=== PATIENT | female | born 1990 | race Caucasian/White ===

== ENCOUNTER 2020-07-02 16:58 | Outpatient (REF) | payer MEDICAID, SELFPAY ==
--- NOTE | 2020-07-02 16:45 | PAPFT_PTH ---
PATIENT: Leandra Collier LOC: [facility]#:[id number] AGE/SX: 29/F ROOM: RE07/02/[address]: Swetha Haney : 1990 BED: DIS: 07/02/2020 SPEC #: [id number] RECD: 07/03/20 13:12 STATUS: MRATY RELiv #: [id number] SURYA: 07/02/20 16:[address]: Swetha Haney DEPT: [facility] Cytology RECD BY: Pina Gutierrez ENTERED: 07/03/20 13:12 SP TYPE: PAPFT OTHR DR: Carlene Mendoza Tissues: 1 - CX/ENDOCX FOR PAP SMEARS Procedures: PAP THIN PREP/UVM Screening Comments: [id number] (CHLAMYDIA/GC)
[2020-07-04 14:21] LABS: Chlamydia Result Negative (Negative); GC Result Negative (Negative)
== END 2020-07-02 16:59 | disposition home or self-care (01) ==
LOC: NCHCN 16:58
PROVIDERS: PCP Nurse Practitioner Family; Visit Provider Physician Assistant
DX: Z11.3 Encounter for screening for infections with a predominantly sexual mode of transmission (principal); Z12.4 Encounter for screening for malignant neoplasm of cervix; R87.611 Atypical squamous cells cannot exclude high grade squamous intraepithelial lesion on cytologic smear of cervix (ASC-H)
CPT/HCPCS: 87491; 87591; 88142

== ENCOUNTER 2020-07-08 01:58 | Outpatient (CLI) | payer MEDICAID, SELFPAY ==
--- NOTE | 2020-07-08 | DI.US_ITS ---
EXAM: US PELVIS TRANSVAGINAL pelvic ultrasound CLINICAL HISTORY: [facility] CERVIX FINDINGS,N88.8,[facility] PAP SMEAR,R87.89,CERVICAL MASS TECHNIQUE: Ultrasound of the pelvis was performed both transabdominal and transvaginal. COMPARISON: No exams were available for comparison FINDINGS: UTERUS: Measures 8.6 cm length x 3.8 cm AP x 5.3 cm wide. There are no uterine fibroids. Endometrial thickness measures 11.4 mm. It appears mildly heterogeneous There is no fluid in the endometrial canal. CERVIX: There are multiple nabothian cysts in the upper cervix noted. The cervix appears somewhat he terogeneous but there is no the discernible mass other than the nabothian cysts. RIGHT OVARY: Measures 2.8 x 2.2 x 2.5 cm There is a cyst in the right ovary measuring 2.5 x 2.2 cm. LEFT OVARY: Measures 2.2 x 1.2 x 0.8 cm Small follicles noted. No solid masses. Normal vascular flow is demonstrated in both ovaries. CUL-DE-SAC: No free fluid evident. IMPRESSION: 1. Slightly thickened and heterogeneous endometrium. No other focal uterine findings. Nabothian cys t noted in the upper cervix. 2. 2.5 x 2.2 centimeters cyst in the right ovary noted. 3. No free fluid evident in the adnexal regions and cul-de-sac. DATA REPOSITORY:
== END 2020-07-08 01:59 ==
PROVIDERS: PCP Physician Assistant; Visit Provider Physician Assistant
DX: N88.8 Other specified noninflammatory disorders of cervix uteri (principal); R87.89 Other abnormal findings in specimens from female genital organs; R93.89 Abnormal findings on diagnostic imaging of other specified body structures; N83.291 Other ovarian cyst, right side
CPT/HCPCS: 76830; 76856

== ENCOUNTER 2020-07-09 09:50 | Outpatient (REF) | payer MEDICAID, SELFPAY ==
[2020-07-09 15:39] LABS: ALT 13 U/L (14-59); AST 10 U/L (15-37); Albumin 3.6 g/dL (3.4-5.0); Alkaline Phosphatase 53 U/L (46-116); Anion Gap 12.9 mmol/L (3-11); BUN 7 mg/dL (7-18); Bilirubin, Total 0.2 mg/dL (0.2-1.0); CO2 25.1 mmol/L (21.0-32.0); CREATININE 0.7 mg/dL (0.55-1.02); Calcium 8.7 mg/dL (8.5-10.1); Calculated LDL 108 mg/dL (<100); Chloride 102 mmol/L (98-107); Cholesterol 209 mg/dL (<200); Glucose 86 mg/dL (74-106); HDL Cholesterol 50 mg/dL (40-60); Potassium 3.6 mmol/L (3.5-5.1); Sodium 140 mmol/L (136-145); TSH (W/Ref FT4) 2.52 uIU/mL (0.36-3.74); Total Protein 7.2 g/dL (6.4-8.2); Triglyceride 255 mg/dL (<150)
== END 2020-07-09 09:51 | disposition home or self-care (01) ==
LOC: NCHCN 09:50
PROVIDERS: PCP Physician Assistant; Visit Provider Physician Assistant
DX: F41.8 Other specified anxiety disorders (principal); K59.09 Other constipation; Z13.220 Encounter for screening for lipoid disorders; Z00.00 Encounter for general adult medical examination without abnormal findings
CPT/HCPCS: 80053; 80061; 84443

== ENCOUNTER 2020-08-06 14:19 | Outpatient (REF) | payer MEDICAID, SELFPAY ==
--- NOTE | 2020-08-06 13:50 | ENDO_PTH ---
PATIENT: Leandra Collier LOC: [facility] U#:[id number] AGE/SX: 29/F ROOM: RE08/06/[address]: Calista Montesinos : 1990 BED: DIS: 08/06/2020 SPEC #: [id number] RECD: 08/06/20 17:13 STATUS: MARTY RELiv #: [id number] SURYA: 08/06/20 13:[address]: Calista Montesinos DEPT: Surgical Specimen RECD BY: Pina Gutierrez ENTERED: 08/06/20 17:14 SP TYPE: Endo OTHR DR: Swetha Haney Tissues: 1 - ENDOCERVICAL BX/CURRETTE 2 - CERVICAL BIOPSY 3 - CERVICAL BIOPSY Procedures: GROSS AND MICRO LEVEL 4 IMMUNOPEROXIDASE STAIN P16 IPEX Comments: [id number]
== END 2020-08-06 14:20 | disposition home or self-care (01) ==
LOC: LBN 14:19
PROVIDERS: PCP Physician Assistant; Visit Provider Obstetrics & Gynecology Gynecology
DX: D06.0 Carcinoma in situ of endocervix (principal); N87.1 Moderate cervical dysplasia
CPT/HCPCS: 88305; 88342; 88361

== ENCOUNTER 2020-09-16 02:34 | Outpatient (CLI) | payer MEDICAID, SELFPAY ==
[2020-09-16 10:11] LABS: HCT 40.4 % (36.0-46.0); HGB 13.5 g/dL (11.2-15.7); MCH 30.8 pg (27.0-33.0); MCHC 33.4 % (32.0-36.0); MPV 10.5 fL (8.0-11.0); Platelet Count 267 10^3/uL (130-400); RBC 4.39 10^6/uL (3.93-5.22); RDW-SD 40.9 fL
[2020-09-16 10:57] LABS: Anion Gap 10.3 mmol/L (3-11); BUN 7 mg/dL (7-18); CO2 27.7 mmol/L (21.0-32.0); CREATININE 0.8 mg/dL (0.55-1.02); Calcium 9.3 mg/dL (8.5-10.1); Chloride 107 mmol/L (98-107); Glucose 74 mg/dL (74-106); HCG Quant, Pregnancy < 1 mIU/mL (1-3); Potassium 3.9 mmol/L (3.5-5.1); Sodium 145 mmol/L (136-145)
== END 2020-09-16 02:35 | disposition home or self-care (01) ==
LOC: LBO 02:34
PROVIDERS: PCP Physician Assistant; Visit Provider Obstetrics & Gynecology Gynecology
DX: D06.0 Carcinoma in situ of endocervix (principal); Z20.822 Contact with and (suspected) exposure to COVID-19; Z01.818 Encounter for other preprocedural examination; Z01.812 Encounter for preprocedural laboratory examination
CPT/HCPCS: 36415; 80048; 85027; 86850; 86900; 86901; 87635; 84702

== ENCOUNTER 2020-09-18 09:48 | Day surgery (SDC) | payer MEDICAID, SELFPAY ==
[2020-09-18] VITALS (7 sets, daily range): BP systolic 79–119; BP diastolic 44–76; PULSE 63–82; RESP 14–18; TEMP 36.1–36.7; O2SAT 98–100; BMI 22.4
[2020-09-18] MEDS: Lactated Ringers 1,000 ML 125 ML IV (10:20)
--- NOTE | 2020-09-18 10:31 | W.ANESPRE ---
General Info Date of Service Date Performed: 09/18/20 Height: 5 ft 4.96 in Weight: 61.235 kg Body Mass Index (BMI): 22.4 Surgical Procedure: Operation Date: 09/18/20 11:25 Proposed Procedures Side Surgeon p Cold Knife Biopsy Calista Montesinos MD Meds Allergies and Home Medications Allergies Allergy/AdvReac Type Severity Reaction Status Date / Time No Known Drug Allergies Allergy Unverified 09/16/20 10:08 Home Medication Medication Instructions Recorded norgestimate-ethinyl estradiol 1 tab-cap PO DAILY tab-cap 02/08/17 [Ortho Tri-Cyclen 28 Tablet] Current Visit Medications: Current Medications Generic Name Dose Route Start Last Admin Trade Name Freq PRN Reason Stop Dose Admin Ringer's Solution 1,000 mls @ 125 mls/hr 09/18/20 06:00 09/18/20 10:20 IV 10/17/20 23:59 125 mls/hr INFUSION LZI Administration IV Miscellaneous Supplies 1 each 09/18/20 06:00 Iv Access IV 10/17/20 23:59 DIRECTED LIZ Sodium Chloride 0 ml 09/18/20 06:00 Normal Saline Flush 10 Ml Syr IV 10/17/20 23:59 PRN PRN Sodium Chloride 0 ml 09/18/20 06:00 Normal Saline 10 Ml Vial IJ 10/17/20 23:59 DIRECTED PRN Sterile Water 0 ml 09/18/20 06:00 Water,Injection,Sterile 10 Ml Vial IJ 10/17/20 23:59 DIRECTED PRN PFSH Active Problems Active Problems: Problem Status Onset Code Preoperative exam for gynecologic surgery Z01.818 H/O colposcopy with cervical biopsy Z98.890 Chronic constipation K59.09 Uses contraception Z78.9 Tobacco use Z72.0 Abnormal Papanicolaou smear of vagina with positive test for vaginal human papillomavirus (HPV) Medical History Medical History Abnormal Papanicolaou smear of vagina with positive test for vaginal human papillomavirus (HPV) 2016. ASCUS +HPV. Colpo: No dysplasia 2020. ASCUS-H. Colpo: Biopsies Chronic constipation He uses MiraLA[employer] Tobacco use Started as a teenager. In the precontemplative stage of change Uses contraception 2020 OCPs Surgical History Surgical History H/O colposcopy with cervical biopsy 08/06/2020 Tobacco Smoking/Tobacco Use Status: Current every day Tobacco Type: cigarettes Smoking packs per day: 0.5 Smoking cigarettes per day: 10.0 Years smoked: 15 Smoking pack-years: 7.50 Alcohol Alcohol Intake: never Substance Use Substance use type: does not use Vital Signs and Lab Results Vital Signs Most Recent Vital Signs in EMR: Most Recent Vital Signs Temp Pulse Resp BP Pulse Ox 36.7 C 82 16 119/76 100 09/18/20 09:57 09/18/20 09:57 09/18/20 09:57 09/18/20 09:57 09/18/20 09:57 Lab Results Blood Type / Crossmatch: Patient ABO/Rh B Positive 09/16/20 09:50 09/16/20 Antibody Screen Negative 09/16/20 09:50 09/16/20 Complete Blood Count: White Blood Count 9.20 10^3/uL (4.4-10.8) 09/16/20 09:50 09/16/20 Red Blood Count 4.39 10^6/uL (3.93-5.22) 09/16/20 09:50 09/16/20 Hemoglobin 13.5 g/dL (11.2-15.7) 09/16/20 09:50 09/16/20 Hematocrit 40.4 % (36.0-46.0) 09/16/20 09:50 09/16/20 Platelet Count 267 10^3/uL (130-400) 09/16/20 09:50 09/16/20 Complete Metabolic Panel: Sodium Level 145 mmol/L (136-145) 09/16/20 09:50 09/16/20 Potassium Level 3.9 mmol/L (3.5-5.1) 09/16/20 09:50 09/16/20 Chloride Level 107 mmol/L (98-107) 09/16/20 09:50 09/16/20 Carbon Dioxide Level 27.7 mmol/L (21.0-32.0) 09/16/20 09:50 09/16/20 Blood Urea Nitrogen 7 mg/dL (7-18) 09/16/20 09:50 09/16/20 Creatinine 0.8 mg/dL (0.55-1.02) 09/16/20 09:50 09/16/20 Calcium Level 9.3 mg/dL (8.5-10.1) 09/16/20 09:50 09/16/20 Albumin 3.6 g/dL (3.4-5.0) 07/09/20 08:00 07/09/20 Glucose Level 74 mg/dL (74-106) 09/16/20 09:50 09/16/20 Liver Function Panel: Alanine Aminotransferase (ALT/SGPT) 13 U/L (14-59) L 07/09/20 08:00 07/09/20 Aspartate Amino Transf (AST/SGOT) 10 U/L (15-37) L 07/09/20 08:00 07/09/20 Coagulation Panel: No Data to Display Cardiac Panel: No Data to Display Arterial Blood Gas: No Data to Display Venous Blood Gas: No Data to Display Pancreas Panel: No Data to Display Thyroid Panel: Thyroid Stimulating Hormone (TSH) 2.52 uIU/mL (0.36-3.74) 07/09/20 08:00 07/09/20 Infectious Disease: Coronavirus (COVID-19)(PCR) Negative (Negative) 09/16/20 10:36 09/16/20 Coronavirus 2019 Source Nasal/nares 09/16/20 10:36 09/16/20 HIV (1&2) Ag and Ab, 4th Generation Negative (NEGAT) 12/23/16 08:45 12/23/16 Syphilis Serology Negative (Negative) 12/23/16 08:45 12/23/16 Neisseria gonorrhoeae DNA Probe Negative (Negative) 07/02/20 16:45 07/02/20 Blood Cultures: No Data to Display Toxicology Panel: No Data to Display Panel: Beta HCG, Quantitative < 1 mIU/mL (1-3) L 09/16/20 09:50 09/16/20 Anesthesia Assessment and Plan Anesthesia History Personal History: No History of General Anesthesia Family History: No Family History of Anesthesia Complications Exercise Tolerance Exercise Tolerance: Metabolic Equivalents>4 Pertinent Negatives Pertinent Negatives: No Symptoms of GERD Cardiac & Pulmonary Exam Cardiac Exam: Normal S1/S2 Heart Sounds Pulmonary Exam: Clear Bilateral Breath Sounds Airway Exam Known Difficult Airway: No Preoperative Airway Comments:: toungue ring removed Mallampati Class: 2 Mouth Opening: Normal (> 3cm) Thyromental Distance: Greater than 3 cm Neck Range of Motion: Full ROM Neck Circumference: Normal Teeth Condition: Normal Dentition ASA Classification ASA Score: ASA 2 Emergency Case?: No NPO Status NPO Status: NPO Clears >2 hours, Solids >8 hours Status Status: Negative HCG Anesthesia Plan Anesthesia Technique: General Anesthesia Airway Planned: Natural Airway Monitors Used: Standard Monitors
--- NOTE | 2020-09-18 12:06 | CER_PTH ---
PATIENT: Leandra oCllier LOC: [facility] U#:[id number] AGE/SX: 29/F ROOM: RE09/18/[address]: Calista Montesinos : 1990 BED: DIS: 09/18/2020 SPEC #: [id number] RECD: 09/18/20 17:33 STATUS: MARTY RELiv #: [id number] SURYA: 09/18/20 12:[address]: Calista Montesinos DEPT: Surgical Specimen RECD BY: Pina Gutierrez ENTERED: 09/18/20 17:34 SP TYPE: CER OTHR DR: Swetha Haney Tissues: 1 - CERVICAL BIOPSY 2 - CERVICAL BIOPSY Procedures: GROSS AND MICRO LEVEL 5 Comments: [id number]
--- NOTE | 2020-09-18 12:30 | W.PM.DSUDISC ---
Discharge Plan Disposition Patient Disposition: HOME Condition: Fair Discharge Details Attending Provider: Calista Montesinos Primary Care Provider: Swetha Haney Home Meds and New Rx's Prescriptions: No Action norgestimate-ethinyl estradiol [Ortho Tri-Cyclen (28)] 1 EACH tablet 1 tab-cap PO DAILY RF: 0 Discharge Instructions Additional Instructions: You can expect cramping and pelvic pain for 24hrs. Dr. Montesinos has called in a prescription for Percocet to your pharmacy. Take one tablet every six hours along with the ADVIL. Nothing in the vagina, no tampons no nothing!. You will have yellow and brown discharge for 4 weeks. Only use pads Stand Alone Forms: DSU Post Gynecology Surgery Activity:: Activity as Tolerated Diet:: As Tolerated Discharge Orders Discharge Orders: Discharge Order (Routine); Ordered 09/18/20 Ordered By: Calista Montesinos
[2020-09-18] MEDS: Bupivacaine 0.25% Pres-Free 30 ML VIAL (12:32)
--- NOTE | 2020-09-18 12:52 | W.ANESPOSTOP ---
Postoperative Evaluation Date, Time and Location Date Performed: 09/18/20 Time Performed: 12:52 Patient Location: PACU Vital Signs Most Recent Imported Vital Signs: Most Recent Vital Signs Temp Pulse Resp BP Pulse Ox 36.1 C L 64 18 98/72 L 100 09/18/20 12:26 09/18/20 12:46 09/18/20 12:46 09/18/20 12:46 09/18/20 12:46 Pain Score Most Recent Pain Score: Most Recent Pain Score Pain Level 4 09/18/20 12:46 Assessment Mental Status: Awake (Alert & Oriented to Patient Baseline) Airway and Respiratory Function: Patent airway with normal (patient baseline) respiratory exam Cardiovascular Function: Hemodynamically Stable Hydration Status: Adequately Hydrated Nausea & Vomiting: No Nausea or Vomiting Pain: Pt. Denies Any Pain Peripheral Nerve Block: Patient did not receive a nerve block (from anesthesia. Did receive a cervical block from surgeon.)
--- NOTE | 2020-09-18 15:36 | ROE_ITS ---
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 Findings: Lugols staning performed. No areas of increased uptake of stain Procedure Description: Patient was brought to the operating room where she was placed in the dorsal supine position and monitored anesthesia care was administered without difficulty. She was then placed in the dorsolithotomy position in yellowfin stirrups prepped and draped in the usual sterile fashion. Surgical timeout was performed. A bivalve speculum was placed in the vagina and a paracervical block was performed using 5 cc of 0.25% Marcaine without epinephrine injected into the paracervical space 4 and 8:00 respectively. The body of the cervix was infiltrated with a total of 3 cc of 1% lidocaine with epinephrine is circumferential fashion. A suture was placed at the 3 and 9:00 positions on the portio of the cervix and held long. Scalpel was used to incise in a circumferential fashion the ectocervix approximately 2 mm from the squamocolumnar junction. Scalpel was then passed through the body of the cervix and two specimens were obtained: A half-still of tissue of the anterior cervix from the 3 to 9 o'clock position was removed. A stitch was placed at the 12 o'clock position. In a similar fashion the scalpel was used to transect the posterior portion of the cervix from the 4 to 8 o'clock position. All of the ectocervix had been removed. A 2-0 Vicryl was used to reapproximate the edge of the cervical epithelium with the excision bed pursestring fashion. Stay sutures were used to close cervical excision site. The site was then treated with Monsel solution. Excellent hemostasis was achieved. Instruments removed the patient vagina, she was awakened and transported to the recovery area in stable condition. All sponge lap needle counts correct x2.
== END 2020-09-18 13:30 | disposition home or self-care (01) ==
PROVIDERS: PCP Physician Assistant; Visit Provider Obstetrics & Gynecology Gynecology
PROC: 0UB97ZZ Excision of Uterus, Via Natural or Artificial Opening (ICD-10-PCS; CPT 57520; principal; 2020-09-18 11:15)
DX: D06.1 Carcinoma in situ of exocervix (principal)
CPT/HCPCS: 57520; 88305; 88307; J1100; J2001; J2250; J2405; J2704

== ENCOUNTER 2024-04-04 15:05 | Outpatient (REF) | payer SELFPAY ==
--- NOTE | 2024-04-04 11:40 | PAPFT_PTH ---
PATIENT: Leandra Collier LOC: [facility]#:[id number] AGE/SX: 33/F ROOM: RE04/04/[address]: Swetha Haney : 1990 BED: DIS: 04/04/2024 SPEC #: [id number] RECD: 04/04/24 18:33 STATUS: MARTY REQ #: [id number] SURYA: 04/04/24 11:[address]: Swetha Haney DEPT: [facility] Cytology RECD BY: Pnia Gutierrez Tissues: 1 - CX/ENDOCX FOR PAP SMEARS Procedures: PAP THIN PREP/UVM Screening HPV DNA PROBE Comments: [id number] (HPV 16 & 18/45)
[2024-04-06 14:16] LABS: Bacterial Vaginosis (BV) Negative (Negative); Candida glabrata Negative (Negative); Candida species group Positive (Negative); Chlamydia Result Negative (Negative); GC Result Negative (Negative); Trichomonas vaginalis Negative (Negative)
== END 2024-04-04 15:06 | disposition home or self-care (01) ==
LOC: NCHCN 15:05
PROVIDERS: PCP Physician Assistant; Visit Provider Physician Assistant
DX: N87.1 Moderate cervical dysplasia (principal); Z12.4 Encounter for screening for malignant neoplasm of cervix; Z72.51 High risk heterosexual behavior; R10.2 Pelvic and perineal pain
CPT/HCPCS: 81513; 87481; 87491; 87591; 87661; 88142; 87086; 87624